=== PATIENT | female | born 1985 | race Two or more races ===

== ENCOUNTER 2019-03-29 12:05 | Emergency (ER) | payer OTHER ==
[~2019-03-29] VITALS: Ht 165.1 cm; Wt 75.9 kg
[2019-03-29 12:15] VITALS: Ht 165.1 cm; Wt 75.9 kg
[2019-03-29 13:00] VITALS: BP 122/74
== END 2019-03-29 13:00 | disposition home or self-care (01) ==
LOC: ED 12:05
DX: L03.115 Cellulitis of right lower limb (principal); W57.XXXA Bitten or stung by nonvenomous insect and other nonvenomous arthropods, initial encounter; Y93.89 Activity, other specified; Y92.89 Other specified places as the place of occurrence of the external cause; Y99.8 Other external cause status

== ENCOUNTER 2019-09-24 10:25 | Emergency (ER) | payer OTHER ==
[~2019-09-24] VITALS: Ht 167.6 cm; Wt 73.0 kg
[2019-09-24 10:38] VITALS: Ht 167.6 cm; Wt 73.0 kg
[2019-09-24 13:08] VITALS: BP 121/68
== END 2019-09-24 13:08 | disposition home or self-care (01) ==
LOC: ED 10:25
DX: J06.9 Acute upper respiratory infection, unspecified (principal); J45.909 Unspecified asthma, uncomplicated
CPT/HCPCS: Q0162

== ENCOUNTER 2020-02-17 17:52 | Emergency (ER) | payer OTHER, SELFPAY ==
[~2020-02-17] VITALS: Ht 167.6 cm; Wt 63.5 kg
[2020-02-17 18:09] VITALS: Ht 167.6 cm; Wt 63.5 kg
[2020-02-17 19:02] VITALS: BP 126/83
== END 2020-02-17 19:02 | disposition home or self-care (01) ==
LOC: ED 17:52
DX: J45.909 Unspecified asthma, uncomplicated (principal); Z20.828 Contact with and (suspected) exposure to other viral communicable diseases
CPT/HCPCS: Q0092; U0003-CS